=== PATIENT | male | born 1965 | race Caucasian/White ===

== ENCOUNTER 2019-11-28 13:11 | Emergency (ER) | payer MEDICARE ==
[~2019-11-28] VITALS: Ht 182.9 cm; Wt 152.3 kg
[2019-11-28 13:18] VITALS: Ht 182.9 cm; Wt 152.3 kg
[2019-11-28] MEDS ORDERED: CLEOCIN HCL300 MG PO (14:12)
[2019-11-28] MEDS ORDERED: FLORASTOR250 MG PO (14:12)
[2019-11-28] MEDS ORDERED: MEDROL DOSE PACK4 MG PO (14:12)
[2019-11-28] MEDS ORDERED: KEFLEX500 MG PO (14:12)
[2019-11-28 15:15] LABS: BASOPHILS 0.1 % (0-2); EOSINOPHILS 5.1 % (0-7); HEMATOCRIT 42.4 % (42.0-54.0); HEMOGLOBIN 14.1 g/dL (13.5-17.5); IMMATURE GRANULOCYTES 0.2 % (0-5); LYMPHOCYTES 9.7 % (15-50); MCH 28.7 pg (26.0-34.0); MCHC 33.3 g/dL (31.0-37.0); MCV 86.2 fL (80.0-100.0); MEAN PLATELET VOLUME 9.3 fL (7.4-10.4); MONOCYTES 5.2 % (2-11); NEUTROPHILS 79.7 % (40-80); PLATELET COUNT 285 10x3/uL (130-400); RBC 4.92 10x6/uL (4.20-6.10)
[2019-11-28 15:23] LABS: ANION GAP 11.6 mmol/L (8-16); CALCIUM 9.4 mg/dL (8.5-10.1); CARBON DIOXIDE 28.6 mmol/L (21.0-32.0); CREATININE - SERUM 1.4 mg/dL (0.6-1.3); POTASSIUM - SERUM 4.2 mmol/L (3.5-5.1)
[2019-11-28 15:29] LABS: ALBUMIN 3.2 g/dL (3.4-5.0); BILIRUBIN - TOTAL 0.38 mg/dL (0.2-1.3); PROTEIN - SERUM 7.7 g/dL (6.4-8.2)
[2019-11-28 16:49] VITALS: BP 132/72
== END 2019-11-28 16:50 | disposition home or self-care (01) ==
LOC: D.ER 13:11
PROVIDERS: Family Medicine
DX: R21 Rash and other nonspecific skin eruption (principal); T36.8X5A Adverse effect of other systemic antibiotics, initial encounter